=== PATIENT | female | born 1930 | race Caucasian/White ===

== ENCOUNTER 2018-05-01 15:56 | Emergency (ER) | payer MEDICARE ==
[~2018-05-01] VITALS: Ht 162.6 cm; Wt 77.3 kg
[~2018-05-01 15:56] MED LIST: ACTOPLUS M15 MG/850 OR; AMITRIPTYLIN25 MG OR; AMITRIPTYLIN25 MG PO; AMLODIPINE10 MG PO; ANTIVERT PO; ANTIVERT25 MG OR; APIDRA1 ML SC; ATENOLOL50 MG OR; ATIVAN0.5 MG OR; BACTRIM DS1 TAB PO; CARDIZEM60 MG OR; COZAAR50 MG OR; CRESTOR10 MG PO; DILANTIN100 MG PO; DIOVAN HC1 PO; FISH OIL1000 MG PO; FLONASE SPRAY50 MCG; GLYBURID MCR6 M1 OR; GLYBURID MCR6 MG OR; LANTUS100 MG/ML SC; LEVOTHYROXIN50 MC1 PO; LOSARTAN POT50 MG PO; METFORMIN1000 MG OR; METFORMIN500 MG PO; METOPROLOL50 MG OR; MULTI COMPLETE PO; TRIAM/HCTZ1 CAP OR; ULTRAM50 MG OR; URECHOLINE10 MG OR; XANAX0.25 MG PO; [UNRECOGNIZED DRUG - SUPPLY] EX
[2018-05-01] MEDS ORDERED: METOPROLOL SUC100 MG PO (16:34)
[2018-05-01] MEDS ORDERED: PLAVIX75 MG PO (16:36)
[2018-05-01] MEDS ORDERED: DILANTIN100 MG PO (16:36)
[2018-05-01 16:43] LABS: HEMATOCRIT 43.8 % (37.0-47.0); IMMATURE GRANULOCYTES 0.3 % (0.0-5.0); MEAN CELL VOLUME 96.9 fL CALC (80.0-100.0); MEAN CORPUSCULAR HGB 33.2 pG CALC (26.0-32.0); MEAN CORPUSCULAR HGB CONC 34.2 g/L CALC (32.0-36.0); NEUT# 3.22 thou/uL (2.00-7.15); RED BLOOD COUNT 4.52 mill/uL (4.20-5.60); RED CELL DISTRI WIDTH 12.5 % (11.5-15.5)
[2018-05-01 17:09] LABS: ANION GAP 18 (6-22 (CALC)); BUN 19 mg/dL (8-23); BUN/CREATININE RATIO 33 (12-20 (CALC)); CARBON DIOXIDE 24 mmol/l (22-30); CHLORIDE 103 mmol/l (95-108); CREATININE 0.6 mg/dL (0.5-1.0); GFR > 60 ML/MIN (>=60 (CALC)); GFR FOR AFR.AMER. > 60 ML/MIN (>=60 (CALC)); POTASSIUM 4.3 mmol/l (3.5-5.1); SODIUM 141 mmol/l (137-146)
[2018-05-01 17:14] LABS: GFR > 60 ML/MIN (>=60 (CALC)); GFR FOR AFR.AMER. > 60 ML/MIN (>=60 (CALC))
[2018-05-01 18:38] LABS: URINE BILIRUBIN - DIPSTICK NEGATIVE (NEGATIVE); URINE BLOOD DIPSTICK NEGATIVE (NEGATIVE); URINE COLOR YELLOW; URINE GLUCOSE - DIPSTICK NEGATIVE (NEGATIVE); URINE KETONE NEGATIVE (NEGATIVE); URINE NITRITE - DIPSTICK NEGATIVE (Negative); URINE PH 6.5 (4.5-8.0); URINE PROTEIN - DIPSTICK NEGATIVE (NEG-TRACE); URINE UROBILINOGEN - DIPSTICK 0.2 E.U./dL (0.2)
[2018-05-01 18:57] LABS: URINE CLARITY TURBID; URINE LEUK ESTERASE MODERATE (NEGATIVE)
[2018-05-01 19:00] VITALS: BP 176/90
[2018-05-01] MEDS ORDERED: MECLIZINE 2525 MG PO (19:02)
[2018-05-01 19:07] LABS: URINE BACTERIA RARE hpf; URINE EPITHELIAL CELLS FEW EPI/hpf (0-FEW); URINE WBC TNTC WBC/hpf (0-5)
== END 2018-05-01 19:15 | disposition home or self-care (01) ==
LOC: ED 15:56
PROVIDERS: Family Medicine
DX: R42 Dizziness and giddiness (principal); I10 Essential (primary) hypertension; H55.00 Unspecified nystagmus; Z95.0 Presence of cardiac pacemaker; E11.9 Type 2 diabetes mellitus without complications; Z79.84 Long term (current) use of oral hypoglycemic drugs
CPT/HCPCS: Q9967

== ENCOUNTER 2018-05-27 22:54 | Emergency (ER) | payer MEDICARE ==
[~2018-05-27] VITALS: Ht 162.6 cm; Wt 78.0 kg
[~2018-05-27 22:54] MED LIST changes: +MECLIZINE 2525 MG PO; +METOPROLOL SUC100 MG PO; +PLAVIX75 MG PO
--- NOTE | 2018-05-27 23:23 | NUR ---
BREATHING TREATMENT GIVEN USING A MOUTH PEICE. BREATHING TECH. FOR GOOD DEPOSITION TO THE LUNGS.
[2018-05-27 23:55] LABS: HEMATOCRIT 41.3 % (37.0-47.0); IMMATURE GRANULOCYTES 0.3 % (0.0-5.0); MEAN CELL VOLUME 97.6 fL CALC (80.0-100.0); MEAN CORPUSCULAR HGB 33.1 pG CALC (26.0-32.0); MEAN CORPUSCULAR HGB CONC 33.9 g/L CALC (32.0-36.0); NEUT# 7.48 thou/uL (2.00-7.15); RED BLOOD COUNT 4.23 mill/uL (4.20-5.60); RED CELL DISTRI WIDTH 12.9 % (11.5-15.5)
[2018-05-28 00:03] LABS: ALBUMIN 4.1 g/dL (3.2-5.0); ALKALINE PHOSPHATASE 103 u/l (38-126); ANION GAP 16 (6-22 (CALC)); BILIRUBIN, TOTAL 0.3 mg/dL (0.0-1.4); BUN 15 mg/dL (8-23); BUN/CREATININE RATIO 31 (12-20 (CALC)); CARBON DIOXIDE 23 mmol/l (22-30); CHLORIDE 103 mmol/l (95-108); CREATININE 0.5 mg/dL (0.5-1.0); GFR > 60 ML/MIN (>=60 (CALC)); GFR FOR AFR.AMER. > 60 ML/MIN (>=60 (CALC)); POTASSIUM 4.7 mmol/l (3.5-5.1); SGOT/AST 37 u/l (9-36); SODIUM 137 mmol/l (137-146); TOTAL PROTEIN 7.4 g/dL (6.3-8.2)
[2018-05-28 00:15] LABS: MYOGLOBIN 29 ng/mL (0 - 62)
[2018-05-28 00:20] LABS: ACT PARTIAL THROMBO TIME 22.2 SECONDS (20.0-32.5); D-DIMER 0.73 mg/L (0.19-0.60); PROTHROMBIN TIME 10.1 SECONDS (9.0-12.5)
[2018-05-28] MEDS ORDERED: VENTOLIN HFA IN (00:34)
[2018-05-28] MEDS ORDERED: PREDNISONE10 MG PO (00:34)
[2018-05-28] MEDS ORDERED: DOXYCYCL HYC100 MG PO (00:34)
[2018-05-28 01:00] VITALS: BP 153/98
== END 2018-05-28 01:00 | disposition home or self-care (01) ==
LOC: ED 22:54
PROVIDERS: Family Medicine
DX: J45.909 Unspecified asthma, uncomplicated (principal); R06.02 Shortness of breath; R05 Cough; I10 Essential (primary) hypertension; X03.0XXA Exposure to flames in controlled fire, not in building or structure, initial encounter; Y92.007 Garden or yard of unspecified non-institutional (private) residence as the place of occurrence of the external cause; Z95.0 Presence of cardiac pacemaker

== ENCOUNTER 2019-06-30 22:57 | Emergency (ER) | payer MEDICARE ==
[~2019-06-30] VITALS: Ht 170.2 cm; Wt 75.4 kg
[~2019-06-30 22:57] MED LIST changes: +DOXYCYCL HYC100 MG PO; +PREDNISONE10 MG PO; +VENTOLIN HFA IN
[2019-06-30 23:30] LABS: HEMATOCRIT 34.8 % (37.0-47.0); HEMOGLOBIN 11.6 g/dl (12.0-16.0); IMMATURE GRANULOCYTES 0.3 % (0.0-5.0); MEAN CELL VOLUME 101.5 fL CALC (80.0-100.0); MEAN CORPUSCULAR HGB 33.8 pG CALC (26.0-32.0); MEAN CORPUSCULAR HGB CONC 33.3 g/L CALC (32.0-36.0); NEUT# 5.32 thou/uL (2.00-7.15); RED BLOOD COUNT 3.43 mill/uL (4.20-5.60); RED CELL DISTRI WIDTH 14.1 % (11.5-15.5)
[2019-06-30 23:47] LABS: ALBUMIN 3.7 g/dL (3.2-5.0); ALKALINE PHOSPHATASE 93 u/l (38-126); ANION GAP 14 (6-22 (CALC)); BILIRUBIN, TOTAL 0.5 mg/dL (0.0-1.4); BUN 17 mg/dL (8-23); BUN/CREATININE RATIO 32 (12-20 (CALC)); CARBON DIOXIDE 22 mmol/l (22-30); CHLORIDE 103 mmol/l (95-108); CREATININE 0.5 mg/dL (0.5-1.0); GFR > 60 ML/MIN (>=60 (CALC)); GFR FOR AFR.AMER. > 60 ML/MIN (>=60 (CALC)); POTASSIUM 3.7 mmol/l (3.5-5.1); SGOT/AST 26 u/l (9-36); SODIUM 135 mmol/l (137-146); TOTAL PROTEIN 6.9 g/dL (6.3-8.2)
[2019-07-01 00:20] VITALS: BP 134/76
== END 2019-07-01 00:20 | disposition home or self-care (01) ==
LOC: ED 22:57
PROVIDERS: Emergency Medicine
DX: L76.32 Postprocedural hematoma of skin and subcutaneous tissue following other procedure (principal); I10 Essential (primary) hypertension; I25.10 Atherosclerotic heart disease of native coronary artery without angina pectoris; E11.40 Type 2 diabetes mellitus with diabetic neuropathy, unspecified; Y83.1 Surgical operation with implant of artificial internal device as the cause of abnormal reaction of the patient, or of later complication, without mention of misadventure at the time of the procedure; Z79.4 Long term (current) use of insulin

== ENCOUNTER 2019-10-31 | Emergency (ER) | payer MEDICARE ==
[2019-10-31 11:38] LABS: HEMATOCRIT 39.7 % (37.0-47.0); HEMOGLOBIN 13.2 g/dl (12.0-16.0); IMMATURE GRANULOCYTES 0.2 % (0.0-5.0); MEAN CELL VOLUME 96.4 fL CALC (80.0-100.0); MEAN CORPUSCULAR HGB CONC 33.2 g/dL CAL (32.0-36.0); NEUT# 4.28 thou/uL (2.00-7.15); RED BLOOD COUNT 4.12 mill/uL (4.20-5.60); RED CELL DISTRI WIDTH 13.6 % (11.5-15.5)
[2019-10-31 11:55] LABS: ALBUMIN 4.2 g/dL (3.2-5.0); ALKALINE PHOSPHATASE 86 u/l (38-126); BUN 22 mg/dL (8-23); BUN/CREATININE RATIO 33 (12-20 (CALC)); CARBON DIOXIDE 26 mmol/l (22-30); CHLORIDE 101 mmol/l (95-108); CREATININE 0.7 mg/dL (0.5-1.0); GFR > 60 ML/MIN (>=60 (CALC)); GFR FOR AFR.AMER. > 60 ML/MIN (>=60 (CALC)); SODIUM 134 mmol/l (137-146); TOTAL PROTEIN 7.5 g/dL (6.3-8.2)
[2019-10-31 12:04] LABS: ANION GAP 12 (6-22 (CALC)); BILIRUBIN, TOTAL 0.8 mg/dL (0.0-1.4); POTASSIUM 4.8 mmol/l (3.5-5.1); SGOT/AST 48 u/l (9-36)
[2019-10-31] MEDS ORDERED: PROAIR HFA108 MCG/AC PO (14:50)
[2019-10-31] MEDS ORDERED: PREDNISONE50 MG PO (14:50)
[2019-10-31] MEDS ORDERED: ZPAK PO (14:50)
--- NOTE | 2019-11-03 07:20 | NUR ---
Spoke with Ruth at [facility]. Advised her I was faxing the patient's Covid results (Negative) to [phone].
== END 2019-10-31 14:22 | disposition home or self-care (01) ==
PROVIDERS: Family Medicine
DX: R06.02 Shortness of breath (principal); I10 Essential (primary) hypertension; I25.10 Atherosclerotic heart disease of native coronary artery without angina pectoris; J45.909 Unspecified asthma, uncomplicated; E11.40 Type 2 diabetes mellitus with diabetic neuropathy, unspecified; Z79.84 Long term (current) use of oral hypoglycemic drugs; Z20.828 Contact with and (suspected) exposure to other viral communicable diseases

== ENCOUNTER 2019-11-01 | Emergency (ER) | payer MEDICARE ==
[~2019-11-01] MED LIST changes: +PREDNISONE50 MG PO; +PROAIR HFA108 MCG/AC PO; +ZPAK PO
[2019-11-01 14:52] LABS: HEMATOCRIT 40.5 % (37.0-47.0); HEMOGLOBIN 13.2 g/dl (12.0-16.0); IMMATURE GRANULOCYTES 1.2 % (0.0-5.0); MEAN CELL VOLUME 98.1 fL CALC (80.0-100.0); MEAN CORPUSCULAR HGB CONC 32.6 g/dL CAL (32.0-36.0); NEUT# 8.19 thou/uL (2.00-7.15); RED BLOOD COUNT 4.13 mill/uL (4.20-5.60); RED CELL DISTRI WIDTH 13.7 % (11.5-15.5)
[2019-11-01 15:10] LABS: ALKALINE PHOSPHATASE 97 u/l (38-126); BILIRUBIN, TOTAL 0.9 mg/dL (0.0-1.4); BUN 18 mg/dL (8-23); BUN/CREATININE RATIO 32 (12-20 (CALC)); CHLORIDE 97 mmol/l (95-108); CREATININE 0.6 mg/dL (0.5-1.0); GFR > 60 ML/MIN (>=60 (CALC)); GFR FOR AFR.AMER. > 60 ML/MIN (>=60 (CALC)); LIPASE 35 u/l (23-300); POTASSIUM 4.1 mmol/l (3.5-5.1); SODIUM 133 mmol/l (137-146); TOTAL PROTEIN 6.3 g/dL (6.3-8.2)
[2019-11-01 15:17] LABS: ALBUMIN 3.3 g/dL (3.2-5.0); ANION GAP 20 (6-22 (CALC)); CARBON DIOXIDE 20 mmol/l (22-30); SGOT/AST 418 u/l (9-36)
[2019-11-01 15:37] LABS: INTERNATIONAL NORMALIZED RATIO 1.1 RATIO (0.7-1.3); PROTHROMBIN TIME 11.4 SECONDS (9.0-12.5)
--- NOTE | 2019-11-01 15:38 | NUR ---
[address] WHITLOCK 7.5 ET TUBE. TUBE SECURED 22 @ LIP TUBE PLACEMENT VERIFIED WITH ETCO2 AND X-RAY. PT PLACED ON VENT BT RT HEIDY SETTINGS 16/450/8100 FOLLOW UP ABG COMPLETED 7.15/51.3/106/17.2 95.7 RESULTS GIVING TO NO CHANGES AT THIS TIME
[2019-11-01 16:16] LABS: URINE BILIRUBIN - DIPSTICK NEGATIVE (NEGATIVE); URINE BLOOD DIPSTICK SMALL (NEGATIVE); URINE COLOR YELLOW; URINE GLUCOSE - DIPSTICK 500 mg/dL (NEGATIVE); URINE KETONE NEGATIVE (NEGATIVE); URINE LEUK ESTERASE NEGATIVE (NEGATIVE); URINE NITRITE - DIPSTICK NEGATIVE (Negative); URINE PROTEIN - DIPSTICK 100 mg/dL (NEG-TRACE); URINE SPECIFIC GRAVITY >=1.030
[2019-11-01 16:27] LABS: URINE MUCUS MODERATE hpf (NONE-FEW); URINE SQUAMOUS EPITHELIAL CELL MODERATE EPI/hpf (0-FEW); URINE WBC 0-2 WBC/hpf (0-5)
== END 2019-11-01 17:51 | disposition short-term general hospital (02) ==
PROVIDERS: Family Medicine
PROC: 06HY33Z Insertion of Infusion Device into Lower Vein, Percutaneous Approach (ICD-10-PCS; principal; 2019-11-01)
PROC: 0BH17EZ Insertion of Endotracheal Airway into Trachea, Via Natural or Artificial Opening (ICD-10-PCS; 2019-11-01)
PROC: 5A1935Z Respiratory Ventilation, Less than 24 Consecutive Hours (ICD-10-PCS; 2019-11-01)
PROC: 0T9B70Z Drainage of Bladder with Drainage Device, Via Natural or Artificial Opening (ICD-10-PCS; 2019-11-01)
PROC: 5A12012 Performance of Cardiac Output, Single, Manual (ICD-10-PCS; 2019-11-01)
PROC: 5A2204Z Restoration of Cardiac Rhythm, Single (ICD-10-PCS; 2019-11-01)
DX: I46.9 Cardiac arrest, cause unspecified (principal); I49.01 Ventricular fibrillation; I10 Essential (primary) hypertension; E11.40 Type 2 diabetes mellitus with diabetic neuropathy, unspecified; I25.10 Atherosclerotic heart disease of native coronary artery without angina pectoris